=== PATIENT | male | born 1970 | race Caucasian/White ===

== ENCOUNTER 2019-08-28 05:57 | Day surgery (SDC) | payer OTHER ==
[~2019-08-28 05:57] MED LIST: CATAPRES0.1 MG PO; FOLIC ACID20 MG PO; KETO10TA2 PO; LIPITOR20 MG; LOSARTAN POTASS50 MG PO; METFORMIN HCL500 M3 PO; TOPROL XL25 M1 PO; TREXALL5 MG PO
== END 2019-08-28 17:10 | disposition home or self-care (01) ==
LOC: CIR.AMB 05:57
PROVIDERS: ATTEND Urology
DX: N20.0 Calculus of kidney (principal)

== ENCOUNTER 2021-05-09 16:45 | Outpatient (CLI) | payer OTHER | END 2021-05-09 16:55 | disposition home or self-care (01) | LOC: LAB 16:45 | PROVIDERS: ATTEND Urology | DX: R97.20 Elevated prostate specific antigen [PSA] (principal) ==

== ENCOUNTER 2021-06-18 07:09 | Outpatient (CLI) | payer OTHER | END 2021-06-18 07:23 | disposition home or self-care (01) | LOC: SONOGRAMA 07:09 | PROVIDERS: ATTEND Urology | DX: R97.20 Elevated prostate specific antigen [PSA] (principal) ==

== ENCOUNTER 2021-06-18 08:55 | Emergency (ER) | payer OTHER ==
[~2021-06-18] VITALS: Ht 177.8 cm; Wt 81.6 kg
== END 2021-06-18 14:06 | disposition home or self-care (01) ==
LOC: ER 08:55
DX: R11.2 Nausea with vomiting, unspecified (principal); R53.1 Weakness; I10 Essential (primary) hypertension; E11.9 Type 2 diabetes mellitus without complications; Z79.84 Long term (current) use of oral hypoglycemic drugs